=== PATIENT | female | born 1955 | race Caucasian/White ===

== ENCOUNTER 2018-06-02 13:56 | Emergency (ER) | payer OTHER ==
--- NOTE | 2018-06-02 15:24 | RAD ---
RIGHT FOOT THREE VIEWS: History: Pain. Injury. Comparison: None. FINDINGS: Subluxation of the fifth digit at the interphalangeal joint space. Post reduction images are recommen ded. Lisfranc alignment appears to be maintained. Mild degenerative changes of the midfoot. IMPRESSION: Dislocation of the fifth interphalangeal joint space. Post reduction films are recommended. POS: [facility]
--- NOTE | 2018-06-02 16:20 | RAD ---
LEFT TOE 2 VIEWS: Date: 06/02/18 HISTORY: Attempt at reduction. COMPARISON: 06/02/18 at 1500 hours. FINDINGS: Persistent subluxation of the fifth digit at the interphalangeal joint space. IMPRESSION: Persistent subluxation. POS: [facility]
== END 2018-06-02 16:44 | disposition home or self-care (01) ==
LOC: SCSER 13:56
DX: S92.532A Displaced fracture of distal phalanx of left lesser toe(s), initial encounter for closed fracture (principal); I10 Essential (primary) hypertension; Z79.899 Other long term (current) drug therapy; W22.8XXA Striking against or struck by other objects, initial encounter
CPT/HCPCS: 28660

== ENCOUNTER 2018-10-23 13:43 | Outpatient (CLI) | payer OTHER ==
--- NOTE | 2018-10-29 13:49 | MMO ---
BILATERAL SCREENING MAMMOGRAM: Date: 10/23/18 COMPARISON: 08/19/16. HISTORY: Screening mammography. FINDINGS: This patient's mammogram was interpreted with the assistance of computer-aided detection. Scattered fibroglandular densities are present. There is no dominant mass or architectural distortion. No concerning microcalcifications are noted. IMPRESSION: BIRADS 2: Benign Finding(s) Annual screening mammography recommended. POS: [facility]
== END 2018-10-23 13:44 | disposition home or self-care (01) ==
LOC: SCSMAMMO 13:43
PROVIDERS: ATTEND Nurse Practitioner Adult Health
DX: Z12.31 Encounter for screening mammogram for malignant neoplasm of breast (principal)
CPT/HCPCS: 77067

== ENCOUNTER 2020-07-05 08:57 | Outpatient (CLI) | payer OTHER ==
--- NOTE | 2020-07-05 10:20 | MRI ---
MRI of thebrain with and without contrast: 07/05/2020 COMPARISON:None available HISTORY:Bilateral hearing loss TECHNIQUE: Multiplanar multisequence MR imaging of thebrain performed with and without contrast using an internal auditory canal protocol Findings:The diffusion weighted imaging demonstrates no evidence for acute infarction. The imaged paranasal sinuses and mastoid air cells demonstrate normal signal intensity. No significan t white matter signal abnormality noted on axial FLAIR or T2-weighted imaging. Arterial flow voids at the axial level of the skull base appear grossly unremarkable on the T2-weight ed imaging. Regional bone marrow signal intensity appears within normal limits. Thin section T2 weighted imaging through the skull base demonstrates normal signal intensity in the r egion of the internal auditory canal, cochlea, vestibule, and semicircular canals bilaterally. Thin section postcontrast imaging through the skull base demonstrates no abnormal enhancement in the region of the internal auditory canal, cochlea, vestibule, or semicircular canals on either side. The whole brain postcontrast imaging is unremarkable. IMPRESSION:Unremarkable brain MRI with and without contrast using the internal auditory canal protoco [id number]
[2020-07-05] MEDS ORDERED: Magnevist 469MG/ML 20 ML VIAL ONE (16:25)
== END 2020-07-05 08:58 | disposition home or self-care (01) ==
LOC: BICMRI 08:57
PROVIDERS: ATTEND Otolaryngology Plastic Surgery within the Head & Neck
DX: H81.03 Meniere's disease, bilateral (principal)
CPT/HCPCS: 70553; A9579

== ENCOUNTER 2023-05-09 15:54 | Outpatient (CLI) | payer OTHER | END 2023-05-09 15:55 | disposition home or self-care (01) | LOC: SCSRAD 15:54 | PROVIDERS: ATTEND Nurse Practitioner Family | DX: R07.89 Other chest pain (principal); M25.511 Pain in right shoulder | CPT/HCPCS: 71120 ==